=== PATIENT | male | born 1980 | race African-American/Black ===

== ENCOUNTER 2020-09-08 06:46 | Emergency (ER) | payer SELFPAY ==
[~2020-09-08] VITALS: Ht 182.9 cm; Wt 81.8 kg
--- NOTE | 2020-09-08 07:28 | PHYS DOC ---
Past Medical History Past Medical History: No Pertinent History Past Surgical History: No Surgical History Smoking Status: Current Every Day Smoker Alcohol Use: Occasionally General Adult EDM: Chief Complaint: NAUSEA/VOMITING/DIARRHEA HPI: HPI: 40 yo AA M PMH covlucas (mid 2019-no complications "asymptomatic") presents to the ED with complaints of nonbloody nonbilious vomiting for the past 3 days it started on Thursday, reports he cannot keep anything down, associated fatigue & weakness. Reports to RN "motion sickness" with any sudden movements, denies any dizziness/light headedness currently. Denies any known sick contacts reported prepared foods. Denies any marijuana use-reports former use. Denies any alcohol or IV drug use. No associated abdominal pain, melena, medic easier, hematemesis, diarrhea, back pain, urinary complaints, sore throat or cough. Reports he has had the symptoms in the past and was seen in the ED for them. EMR was reviewed and patient was admitted in March 2020 for PUI, hypokalemia, acute kidney injury and dehydration-patient reported marijuana use at that time (thc positive). Covid test was negative. Review of Systems: Review of Systems: Constitutional: Denies fever or chills. [] Eyes: Denies change in visual acuity. [] HENT: Denies nasal congestion or sore throat. [] Respiratory: Denies cough or shortness of breath. [] Cardiovascular: Denies chest pain or edema. [] GI: Denies abdominal pain, bloody stools or diarrhea. [] : Denies dysuria or hematuria or urethral discharge Musculoskeletal: Denies back pain or joint pain. [] Integument: Denies rash or diaphoresis Neurologic: Denies headache, neck stiffness focal weakness or sensory changes. [] Endocrine: Denies polyuria or polydipsia. [] Lymphatic: Denies swollen glands. [] Psychiatric: Denies depression or anxiety. [] Heart Score: C/O Chest Pain: No Risk Factors: Risk Factors: DM, Current or recent (<one month) smoker, HTN, HLP, family history of CAD, obesity. Risk Scores: Score 0 - 3: 2.5% MACE over next 6 weeks - Discharge Home Score 4 - 6: 20.3% MACE over next 6 weeks - Admit for Clinical Observation Score 7 - 10: 72.7% MACE over next 6 weeks - Early Invasive Strategies Current Medications: Current Medications Medications (Trade) Dose Ordered Sig/Otto Start Time Stop Time Status Last Admin Dose Admin Famotidine (Pepcid Vial) 20 mg 1X ONCE 09/08/20 07:30 09/08/20 07:31 Metoclopramide HCl (Reglan Vial) 10 mg 1X ONCE 09/08/20 07:30 09/08/20 07:31 Sodium Chloride 1,000 ml @ 1,000 mls/hr 1X ONCE 09/08/20 07:30 09/08/20 08:29 Allergies: Allergies: Allergies Coded Allergies Type Severity Reaction Last Updated Verified No Known Drug Allergies 03/28/20 No Physical Exam: PE: Constitutional: Thin, fatigued but nontoxic and in no distress, HENT: Normocephalic, atraumatic, very dry/cracked mucous membranes Eyes: EOMI, conjunctiva normal, no discharge. Neck: Normal range of motion, supple, Cardiovascular: S1/2 present, tachycardic Lungs & Thorax: Speaking in full sentences, bilateral equal chest rise, no tachypnea or increased work of breathing Abdomen: soft, no tenderness, no rigidity or guarding Skin: Warm, dry, no erythema, no rash. [] Extremities: No tenderness, no cyanosis, no lower extremity edema-wearing socks with marijuana leafs on them Neurologic: Alert and oriented X 3, normal motor function, normal sensory function, no focal deficits noted. [] Psychologic: Affect normal, judgement normal, mood normal. [] Current Patient Data: Vital Signs: Vital Signs Date Time Temp Pulse Resp B/P (MAP) Pulse Ox O2 Delivery O2 Flow Rate FiO2 09/08/20 07:08 98.2 104 16 104/86 (92) 97 Room Air 98.2 EKG: EKG: Sinus rhythm at 88 bpm, no axis deviation, QTC 441, T wave inversion aVL , no ST elevation or ST depression, no active chest pain Radiology/Procedures: Radiology/Procedures: pt refusing any imaging Course & Med Decision Making: Course & Med Decision Making Pertinent Labs and Imaging studies reviewed. (See chart for details) Concern for mild hypokalemia of 3.2 in the setting of nausea and nonbloody n onbilious vomiting. Labs show acute kidney injury, appears to be prerenal in nature. Patient was treated with oral potassium, Pepcid, Reglan and IV fluids. Patient declined any x-ray imaging including acute abdominal series despite my education regarding ruling out infectious vs surgical etiologies (thus pt will sign ama form). Pt denies any abdominal or chest pain, cough or chest tightness. Urine not provided by pt after multiple attempts by rn and myself (cannabinoid hyperemesis on ddx). Pt with no urinary sxs. Will rx zofran odt. On reevaluation patient sleeping comfortably, tachycardia resolved and is tolerating sips of water-N/V have resolved. Will discharge home with strict ED return precautions were given for intractable nausea vomiting, fever, worsening pain or syncope. Encouraged urgent outpatient follow-up with PMD and nephrology as needed for definitive management for acute kidney injury. Life-threatening processes were considered but are low suspicion at this time, given history, physical exam and ED workup. Pt was educated on all prescription medications and adverse effects. All patient's questions were answered and pt was stable at time of discharge. Life/limb-threatening differential includes but is not limited to, acute coronary syndrome/myocardial infarction, Boerhaave's, DKA, gastrointestinal bleeding, intracranial hemorrhage, ischemic bowel, meningitis, sepsis, surgical abdomen (AAA), toxidrome (drug over/overdose/carbon monoxide, etc), ovarian/testicular torsion, trauma, or infection/sepsis. The patient has decided to leave our facility against medical advice. I have assessed patient's ability to make informed decision and feel the patient has the capacity to comprehend information regarding the current medical condition and appreciates the impact of the disease or condition and the consequences of various options for treatment, including foregoing treatment. The patient possesses the ability to evaluate all treatment options, comparing the risks and benefits of each option, communicate his or her choice in a consistent manner over time, and is able to make rational choices. I explained to the patient further testing, treatment, and evaluation I would like to perform in the emergency department visit as well as any possible alternatives that can be accomplished in a timely manner. I have outlined the possible risks of foregoing any or all of these interventions and the patient understands and acknowledges that the decision to leave may result in undesirable consequences such as , permanent disability, and/or loss of current lifestyle. Even though leaving A is not ideal, I have instructed the patient to follow any discharge instructions given, take any medications prescribed, and resume care as soon as possible with another provider. This conversation was witnessed by another member of the emergency department staff and we clearly communicated the patient is welcome to return anytime to continue care at our facility. Naif Disclaimer: Naif Disclaimer: This electronic medical record was generated, in whole or in part, using a voice recognition dictation system. Departure Departure Impression: Primary Impression: Nausea & vomiting Additional Impressions: TOM (acute kidney injury) Hypokalemia Disposition: LEFT AGAINST MEDICAL ADVICE Condition: STABLE Referrals: NO PCP (PCP) follow up in 24-48 hours or FOLLOW UP WITH FAMILY MEDICINE: [address], [address] [place] [address] Patient Instructions: Acute Kidney Injury, Discharge Against Medical Advice, Nausea and Vomiting Additional Instructions: EMERGENCY DEPARTMENT GENERAL DISCHARGE INSTRUCTIONS Thank you for coming to [facility] Emergency Department (ED) today and trusting us with you care. We trust that you had a positive experience in our E mergency Department. If you wish to speak to the department management, you may call the Director at [phone]. YOUR FOLLOW UP INSTRUCTIONS ARE FOLLOWS: 1. Do you have a private Doctor? If you do not have a private doctor, please ask for a resource list of physicians or clinics that may be able to assist you with follow up care. 2. The Emergency Physicain has interpreted your x-rays. The X-Ray specialist will also review them. If there is a change in the findings, you will be notified in 48 hours when at all possible. 3. A lab test or culture has been done, your results will be reviewed and you will be notified if you need a change in treatment. ADDITIONAL INSTRUCTIONS AND INFORMATION: 1. Your care today has been supervised by a physician who is specially trained in emergency care. Many problems require more than one evaluation for a complete diagnosis a nd treatment. We recommend that you schedule your follow up appointment as recommended to ensure complete treatment of you illness or injury. If you are unable to obtain follow up care and continue to have a problem, or if your condition worsens, we recommend that you return to the ED. 2. We are not able to safely determine your condition over the phone nor are we able to give sound medical advice over the phone. For these safety reasons, if you call for medical advice we will ask you to come to the ED for further evaluation. 3. If you have any questions regarding these discharge instructions please call the ED at [phone]. SAFETY INFORMATION: In the interest of safety, wellness, and injury prevention; we encourage you to wear your sealbelt, if you smoke; quite smoking, and we encourage family to use a protective helmet for bicycling and other sporting events that present an increased risk for head injury. IF YOUR SYMPTOMS WORSEN OR NEW SYMPTOMS DEVELOP, OR YOU HAVE CONCERNS ABOUT YOUR CONDITION; OR IF YOUR CONDITION WORSENS WHILE YOU ARE WAITING FOR YOUR FOLLOW UP APPOINTMENT; EITHER CONTACT YOUR PRIMARY CARE DOCTOR, THE PHYSICIAN WHOSE NAME AND NUMBER YOU WERE GIVEN, OR RETURN TO THE ED IMMEDIATELY. Scripts Ondansetron (ONDANSETRON ODT) 4 Mg Tab.rapdis 1 TAB PO PRN Q6-8HRS, #20 TAB Prov: LUIS CHASE DO 09/08/20 LUIS CHASE DO Sep 08, 2020 07:28
[2020-09-08] MEDS ORDERED: FAMOTIDINE 20 MG/2 ML VIAL IVP ONE (07:30)
[2020-09-08] MEDS ORDERED: IV NORMAL SALINE 1000ML BAG 1,000 ML IV ONE ×2 (07:30→09:00)
[2020-09-08] MEDS ORDERED: METOCLOPRAMIDE HCL 10 MG/2 ML VIAL. IVP ONE (07:30)
[2020-09-08 07:31] LABS: BASO # 0.1 x10^3/uL (0.0-0.2); BASO % 1 % (0-3); EOS % 0 % (0-3); HEMATOCRIT 42.6 % (39.0-53.0); HEMOGLOBIN 14.5 g/dL (13.0-17.5); LYMPH # 3.9 x10^3/uL (1.0-4.8); LYMPH % 32 % (24-48); MEAN CORPUSCULAR HEMOGLOBIN 29 pg (25-35); MEAN CORPUSCULAR HGB CONC 34 g/dL (31-37); MEAN CORPUSCULAR VOLUME 85 fL (79-100); MONO % 8 % (0-9); NEUT # 7.1 x10^3/uL (1.8-7.7); NEUT % 59 % (31-73); PLATELET COUNT 456 x10^3/uL (140-400); RED BLOOD COUNT 5.02 x10^6/uL (4.30-5.70); RED CELL DISTRIBUTION WIDTH 13.5 % (11.5-14.5); WHITE BLOOD COUNT 12.2 x10^3/uL (4.0-11.0)
[2020-09-08 07:43] LABS: CALCIUM 9.7 mg/dL (8.5-10.1); CREATININE 1.5 mg/dL (0.7-1.3); GFR 62.1; POTASSIUM 3.2 mmol/L (3.5-5.1)
[2020-09-08 07:49] LABS: ALBUMIN 4.1 g/dL (3.4-5.0); DIRECT BILIRUBIN 0.2 mg/dL (0.0-0.2); TOTAL BILIRUBIN 0.7 mg/dL (0.2-1.0); TOTAL PROTEIN 10.9 g/dL (6.4-8.2)
[2020-09-08] MEDS ORDERED: POTASSIUM CHLORIDE 20 MEQ TABLET.ER. PO ONE (08:30)
[2020-09-08 10:05] VITALS: BP 126/73
[2020-09-08] MEDS ORDERED: ONDA4TAB12 PO (10:34)
--- NOTE | 2020-09-08 12:42 | EKG ---
[facility] [address] [place] [address] Test Date: 2020-09-08 Test Time: 07:39:59 Pat Name: KALIN CARTAGENA Department: Room: Gender: M Director Service: : 1980 Requested By: LUIS CHASE Order Number: [id number] Reading MD: Measurements Intervals [place] Rate: 88 P: 65 [place]: 150 QRS: 80 QRSD: 86 T: 65 QT: 362 QTc: 441 Interpretive Statements SINUS RHYTHM LEFT ATRIAL ABNORMALITY CONSIDER RIGHT VENTRICULAR HYPERTROPHY QRS(T) CONTOUR ABNORMALITY CONSIDER ANTEROLATERAL MYOCARDIAL DAMAGE ABNORMAL ECG RI6.01 No previous ECG available for comparison
== END 2020-09-08 10:52 | disposition left against medical advice (07) ==
LOC: ER 06:46
DX: R11.2 Nausea with vomiting, unspecified (principal); N17.9 Acute kidney failure, unspecified; E87.6 Hypokalemia; F17.200 Nicotine dependence, unspecified, uncomplicated
CPT/HCPCS: 36415; 80048; 80076; 83690; 84484; 85025; 93005; 96361; 96374; 96375; 99285; J2765; J3490; J7030

== ENCOUNTER 2021-06-28 08:34 | Emergency (ER) | payer BC ==
[~2021-06-28] VITALS: Ht 182.9 cm; Wt 86.3 kg
[~2021-06-28 08:34] MED LIST: OMEP20CA16 PO; ONDA4TAB12 PO
[2021-06-28 08:56] LABS: BASO # 0.1 x10^3/uL (0.0-0.2); BASO % 1 % (0-3); EOS # 0.1 x10^3/uL (0.0-0.7); EOS % 1 % (0-3); HEMATOCRIT 46.6 % (39.0-53.0); HEMOGLOBIN 15.9 g/dL (13.0-17.5); LYMPH # 3.8 x10^3/uL (1.0-4.8); LYMPH % 42 % (24-48); MEAN CORPUSCULAR HEMOGLOBIN 29 pg (25-35); MEAN CORPUSCULAR HGB CONC 34 g/dL (31-37); MEAN CORPUSCULAR VOLUME 85 fL (79-100); MONO # 1.4 x10^3/uL (0.0-1.1); MONO % 16 % (0-9); NEUT # 3.7 x10^3/uL (1.8-7.7); NEUT % 41 % (31-73); PLATELET COUNT 357 x10^3/uL (140-400); RED BLOOD COUNT 5.49 x10^6/uL (4.30-5.70); RED CELL DISTRIBUTION WIDTH 13.3 % (11.5-14.5); WHITE BLOOD COUNT 9.1 x10^3/uL (4.0-11.0)
[2021-06-28] MEDS ORDERED: KETOROLAC 15 MG/ML VIAL. IVP ONE (09:00)
[2021-06-28] MEDS ORDERED: ONDANSETRON PF 4 MG/2 ML VIAL. IVP ONE (09:00)
[2021-06-28] MEDS ORDERED: IOHEXOL 300 MG/ML 100ML VIAL. IV ONE (09:00)
[2021-06-28] MEDS ORDERED: CONTRAST GIVEN. MC PRN (09:00)
[2021-06-28] MEDS ORDERED: IV NORMAL SALINE 1000ML BAG 1,000 ML IV ONE (09:00)
--- NOTE | 2021-06-28 09:07 | PHYS DOC ---
Past Medical History Past Medical History: No Pertinent History Past Surgical History: No Surgical History Smoking Status: Never Smoker Alcohol Use: None Adult General Chief Complaint Chief Complaint: NAUSEA/VOMITING/DIARRHEA HPI HPI Patient is a 41 year old male presenting to the emergency department for evaluation abdominal pain nausea vomiting that started 1 week ago. Patient says that he has not been able to hold down any fluids and Tylenol starting just this morning he was able to hold down some liquids. Patient says that he feels diffuse crampy pain but it is not severe at this time. Patient denies any prior abdominal surgeries. He says the emesis is nonbloody nonbilious that he has had no diarrhea. Patient denies fevers chills dysuria hematuria. He is in no acute distress with normal vital signs. Review of Systems Review of Systems Constitutional: Denies fever or chills [] Eyes: Denies change in visual acuity, redness, or eye pain [] HENT: Denies nasal congestion or sore throat [] Respiratory: Denies cough or shortness of breath [] Cardiovascular: No additional information not addressed in HPI [] GI: + abdominal pain, nausea, vomiting. No bloody stools or diarrhea [] : Denies dysuria or hematuria [] Musculoskeletal: Denies back pain or joint pain [] Integument: Denies rash or skin lesions [] Neurologic: Denies headache, focal weakness or sensory changes [] Endocrine: Denies polyuria or polydipsia [] All other systems were reviewed and found to be within normal limits, except as documented in this note. Current Medications Current Medications Current Medications Medications (Trade) Dose Ordered Sig/[facility] Start Time Stop Time Status Last Admin Dose Admin Info (CONTRAST GIVEN -- Rx MONITORING) 1 each PRN DAILY PRN 06/28/21 09:00 06/30/21 08:59 Iohexol (Omnipaque 300 Mg/ml) 75 ml 1X ONCE 06/28/21 09:00 06/28/21 09:01 DC 06/28/21 09:35 75 ML Ketorolac Tromethamine (Toradol 15mg Vial) 15 mg 1X ONCE 06/28/21 09:00 06/28/21 09:01 DC 06/28/21 09:00 15 MG Magnesium Sulfate/ Dextrose 100 ml @ 100 mls/hr 1X ONCE 06/28/21 10:45 06/28/21 11:44 DC 06/28/21 11:30 100 MLS/HR Ondansetron HCl (Zofran) 8 mg 1X ONCE 06/28/21 09:00 06/28/21 09:01 DC 06/28/21 09:00 8 MG Potassium Chloride (Klor-Con) 40 meq 1X ONCE 06/28/21 10:45 06/28/21 11:10 DC 06/28/21 11:30 40 MEQ Sodium Chloride 1,000 ml @ 1,000 mls/hr 1X ONCE 06/28/21 09:00 06/28/21 09:59 DC 06/28/21 09:00 1,000 MLS/HR Allergies Allergies Allergies Coded Allergies Type Severity Reaction Last Updated Verified No Known Drug Allergies 11/02/20 No Physical Exam Physical Exam Constitutional: Well developed, well nourished, no acute distress, non-toxic appearance. [] HENT: Normocephalic, atraumatic, bilateral external ears normal, oropharynx moist, no oral exudates, nose normal. [] Eyes: PERRLA, EOMI, conjunctiva normal, no discharge. [] Neck: Normal range of motion, no tenderness, supple, no stridor. [] Cardiovascular:Heart rate regular rhythm, no murmur [] Lungs & Thorax: Bilateral breath sounds clear to auscultation [] Abdomen: Bowel sounds normal, soft, no tenderness, no masses, no pulsatile masses. [] Skin: Warm, dry, no erythema, no rash. [] Back: No tenderness, no CVA tenderness. [] Extremities: No tenderness, no cyanosis, no clubbing, ROM intact, no edema. [] Neurologic: Alert and oriented X 3, normal motor function, normal sensory function, no focal deficits noted. [] Current Patient Data Vital Signs Vital Signs Date Time Temp Pulse Resp B/P (MAP) Pulse Ox O2 Delivery O2 Flow Rate FiO2 06/28/21 11:47 105 16 138/90 (106) 97 Room Air 06/28/21 08:36 98.5 98.5 Lab Values Laboratory Tests Test 06/28/21 08:46 White Blood Count 9.1 x10^3/uL (4.0-11.0) Red Blood Count 5.49 x10^6/uL (4.30-5.70) Hemoglobin 15.9 g/dL (13.0-17.5) Hematocrit 46.6 % (39.0-53.0) Mean Corpuscular Volume 85 fL (79-100) Mean Corpuscular Hemoglobin 29 pg (25-35) Mean Corpuscular Hemoglobin Concent 34 g/dL (31-37) Red Cell Distribution Width 13.3 % (11.5-14.5) Platelet Count 357 x10^3/uL (140-400) Neutrophils (%) (Auto) 41 % (31-73) Lymphocytes (%) (Auto) 42 % (24-48) Monocytes (%) (Auto) 16 % (0-9) H Eosinophils (%) (Auto) 1 % (0-3) Basophils (%) (Auto) 1 % (0-3) Neutrophils # (Auto) 3.7 x10^3/uL (1.8-7.7) Lymphocytes # (Auto) 3.8 x10^3/uL (1.0-4.8) Monocytes # (Auto) 1.4 x10^3/uL (0.0-1.1) H Eosinophils # (Auto) 0.1 x10^3/uL (0.0-0.7) Basophils # (Auto) 0.1 x10^3/uL (0.0-0.2) Sodium Level 128 mmol/L (136-145) L Potassium Level 3.0 mmol/L (3.5-5.1) L Chloride Level 89 mmol/L (98-107) L Carbon Dioxide Level 29 mmol/L (21-32) Anion Gap 10 (6-14) Blood Urea Nitrogen 19 mg/dL (8-26) Creatinine 1.4 mg/dL (0.7-1.3) H Estimated GFR (Cockcroft-Gault) 66.9 BUN/Creatinine Ratio 14 (6-20) Glucose Level 112 mg/dL (70-99) H Calcium Level 9.5 mg/dL (8.5-10.1) Total Bilirubin 0.5 mg/dL (0.2-1.0) Aspartate Amino Transferase (AST) 40 U/L (15-37) H Alanine Aminotransferase (ALT) 53 U/L (16-63) Alkaline Phosphatase 104 U/L (46-116) Total Protein 10.3 g/dL (6.4-8.2) H Albumin 4.0 g/dL (3.4-5.0) Albumin/Globulin Ratio 0.6 (1.0-1.7) L Lipase 27 U/L (73-393) L Laboratory Tests 06/28/21 08:46 Laboratory Tests 06/28/21 08:46 EKG EKG [] Radiology/Procedures Radiology/Procedures [] Course & Med Decision Making Course & Med Decision Making Patient has a nontender abdomen and overall appears well but given he has had intractable nausea and vomiting for the past 1 week I will check labs and imaging treat symptoms and reassess. Patient does have findings of hypokalemia and hyponatremia on his laboratory evaluation with a CT showed no acute surgical process. I discussed all lab and imaging findings and the need for follow-up. Patient says his pain and nausea has resolved and his repeat abdominal exam is benign and he is asking to go home. Patient appears well with normal vital signs and is nontoxic. Given patient appears well with normal vital signs benign physical exam work-up and is asking to go home I will discharge him in stable condition. Patient will be discharged with supportive medications told to follow-up primary care provider within 2 to 3 days for recheck and come back to emergency department sooner with worsening pain fevers vomiting or other general concerns. Patient aware and agreeable with plan and verbalized understanding of the above instructions. Dragon Disclaimer Dragon Disclaimer This electronic medical record was generated, in whole or in part, using a voice recognition dictation system. Departure Departure Impression: Primary Impression: Abdominal pain Additional Impressions: Nausea & vomiting Hyponatremia Hypokalemia Disposition: 01 HOME / SELF CARE / HOMELESS Condition: IMPROVED Referrals: NO PCP (PCP) Patient Instructions: Abdominal Pain (Nonspecific) Additional Instructions: Drink plenty of gatorade and other fluids. Take in foods high in potassium such as bananas. Scripts Hydrocodone/Acetaminophen (Hydrocodone-Acetamin 5-325 mg) 1 Each Tablet 1 EACH PO Q6HRS PRN for PAIN, #8 TAB Prov: ZARA FORTUNE DO 06/28/21 Ondansetron (ONDANSETRON ODT) 4 Mg Tab.rapdis 1 TAB PO PRN Q6-8HRS, #16 TAB Prov: ZARA FORTUNE DO 06/28/21 Problem Qualifiers Primary Impression: Abdominal pain Abdominal location: generalized Qualified Codes: R10.84 - Generalized abdominal pain ZARA FORTUNE DO Jun 28, 2021 09:06
[2021-06-28 09:15] LABS: ALBUMIN/GLOBULIN RATIO 0.6 (1.0-1.7); CALCIUM 9.5 mg/dL (8.5-10.1); CREATININE 1.4 mg/dL (0.7-1.3); GFR 66.9; TOTAL BILIRUBIN 0.5 mg/dL (0.2-1.0); TOTAL PROTEIN 10.3 g/dL (6.4-8.2)
--- NOTE | 2021-06-28 10:07 | RAD ---
PQRS Compliance Statement: One or more of the following individualized dose reduction techniques were utilized for this examinat ion: 1. Automated exposure control 2. Adjustment of the mA and/or kV according to patient size 3. Use of iterative reconstruction technique Exam performed: CT chest abdomen pelvis with contrast HISTORY: Abdominal pain. DATE OF SERVICE: 06/28/2021. COMPARISON: CT abdomen pelvis from March 28, 2020. TECHNIQUE: Contiguous helical acquisitions are obtained through the abdomen and pelvis during intrave nous administration of IV contrast. Sagittal and coronal reformatted images are obtained and reviewed . FINDINGS: The lung bases are essentially clear. Visualized heart is normal. The liver, spleen, pancreas and gallbladder are normal. Both adrenal glands and bilateral kidneys are normal in size with symmetric excretion of contrast via both kidneys. There is no hydronephrosis or nephrolithiasis. Aorta is normal in caliber without aneurysm. No retroperitoneal or mesenteric lympha denopathy seen. The small bowel loops are nondilated and unremarkable. There is diffuse scattered st ool in the colon. Appendix is not clearly seen. No inflammatory changes are seen in the right lower q uadrant. The urinary bladder is decompressed. The prostate gland, seminal vesicles and rectum appear normal. N o free or focal effusions or mesenteric lymphadenopathy seen. No definite bony abnormality seen. IMPRESSION: No acute intra-abdominal or pelvic process seen. Diffuse scattered stool throughout the colon. Correlate clinically for constipation. Electronically signed by: Radha Benitez MD (06/28/2021 10:04 AM) [facility]
[2021-06-28] MEDS ORDERED: POTASSIUM CHLORIDE 20 MEQ TABLET.ER. PO ONE (10:45)
[2021-06-28] MEDS ORDERED: MAGNESIUM SULFATE 1GM 100 ML IV ONE (10:45)
[2021-06-28 11:47] VITALS: BP 138/90
[2021-06-28] MEDS ORDERED: HYDR-2759 PO (13:07)
[2021-06-28] MEDS ORDERED: ONDA4TAB12 PO (13:07)
== END 2021-06-28 13:11 | disposition home or self-care (01) ==
LOC: ER 08:34
DX: R10.84 Generalized abdominal pain (principal); R11.2 Nausea with vomiting, unspecified; E87.1 Hypo-osmolality and hyponatremia; E87.6 Hypokalemia
CPT/HCPCS: 36415; 74177; 80053; 83690; 85025; 96361; 96365; 96375; 99285; J1885; J2405; J3475; J7030; Q9967